=== PATIENT | male | born 1990 | race Two or more races ===

== ENCOUNTER 2023-06-18 11:01 | Outpatient (REF) | payer OTHER, SELFPAY ==
--- NOTE | ~2023-06-18 | XR_ITS ---
EXAMINATION: Chest. Lumbar spine. CLINICAL INDICATIONS: Chronic bilateral low back pain. Intermittent and SOB. COMPARISON: None. TECHNIQUE: Chest 2 views. Lumbar spine 3 views. FINDINGS: CHEST: The lungs are well-expanded and clear. The heart size and pulmonary vascularity is normal. No gross bony abnormality seen. LUMBAR SPINE: There is normal lumbar lordosis. The vertebral heights, alignment and disc heights are normal. No visible acute fracture, dislocation or subluxation seen. SI joints are symmetrical and normal. XR/XR lumbar spine 2-3V IMPRESSION: Unremarkable lumbar spine exam. Unremarkable chest exam.
--- NOTE | ~2023-06-18 | XR_ITS ---
EXAMINATION: Chest. Lumbar spine. CLINICAL INDICATIONS: Chronic bilateral low back pain. Intermittent and SOB. COMPARISON: None. TECHNIQUE: Chest 2 views. Lumbar spine 3 views. FINDINGS: CHEST: The lungs are well-expanded and clear. The heart size and pulmonary vascularity is normal. No gross bony abnormality seen. LUMBAR SPINE: There is normal lumbar lordosis. The vertebral heights, alignment and disc heights are normal. No visible acute fracture, dislocation or subluxation seen. SI joints are symmetrical and normal. XR/XR chest 2V IMPRESSION: Unremarkable lumbar spine exam. Unremarkable chest exam.
== END 2023-06-18 11:02 | disposition home or self-care (01) ==
LOC: HO.HHCX 11:01
PROVIDERS: Visit Provider Family Medicine
DX: R06.02 Shortness of breath (principal); M54.50 Low back pain, unspecified; G89.29 Other chronic pain
CPT/HCPCS: 71046; 72100